=== PATIENT | female | born 1960 | race Caucasian/White ===

== ENCOUNTER → 2016-09-08 | Outpatient (CLI) | payer OTHER ==
[~2016-09-08] MED LIST: ALENDRONATE SOD70 M1 PO; ALLEGRA30 MG; ASA; ASPIRIN ADULT L81 M1; BUSPIRONE HCL10 MG PO; CARVEDILOL3.125 MG; CARVEDILOL3.125 MG PO; COREG6.25 MG; CRESTOR10 MG PO; CYCLOBENZAPR; DAYPRO600 M1 PO; ESCITALOPRAM OX10 MG PO; ETODOLAC400 M2 PO; ETODOLAC400 MG PO; FLEXERIL10 MG PO; HYDROCODONE BIT1 T11 PO; LODINE XL400 MG; MICARDIS40 MG; MICARDIS40 MG PO; OMEPRAZOLE; OMEPRAZOLE20 MG; OYSTER SHELL C500 M2 PO; PREVACID; SIMVASTATIN40 MG; TELMISARTAN40 M1 PO; ULTRAM50 MG PO; VICODIN ES 7501 TAB PO; VITAMIN D; VITAMIN D5000 I2 PO; ZANTAC150 MG PO; [UNRECOGNIZED DRUG - MIXTURE]
== END | disposition home or self-care (01) ==
LOC: RAD 14:41
DX: M47.896 Other spondylosis, lumbar region (principal); M54.41 Lumbago with sciatica, right side; M53.3 Sacrococcygeal disorders, not elsewhere classified; M47.892 Other spondylosis, cervical region

== ENCOUNTER 2016-09-14 17:10 | Emergency (ER) | payer SELFPAY ==
[~2016-09-14] VITALS: Ht 160 cm; Wt 71.7 kg
[2016-09-14 17:16] VITALS: BP 126/94
[2016-09-14] MEDS ORDERED: NAPROSYN500 MG PO (17:28)
== END 2016-09-14 17:35 | disposition home or self-care (01) ==
LOC: ED 17:10
DX: G89.29 Other chronic pain (principal); M54.2 Cervicalgia; M54.5 Low back pain; M25.551 Pain in right hip; M19.90 Unspecified osteoarthritis, unspecified site; F17.200 Nicotine dependence, unspecified, uncomplicated; Z88.6 Allergy status to analgesic agent; Z88.8 Allergy status to other drugs, medicaments and biological substances; Z79.899 Other long term (current) drug therapy

== ENCOUNTER → 2017-08-20 | Outpatient (CLI) | payer OTHER ==
[~2017-08-20] MED LIST changes: +NAPROSYN500 MG PO
== END | disposition home or self-care (01) ==
LOC: US 09:24
DX: M85.5 Aneurysmal bone cyst (principal); K66.8 Other specified disorders of peritoneum

== ENCOUNTER 2018-01-26 12:21 | Emergency (ER) | payer BC ==
[~2018-01-26] VITALS: Ht 160 cm; Wt 70.8 kg
[2018-01-26 12:23] VITALS: BP 148/81
[2018-01-26] MEDS ORDERED: NAPROSYN500 MG PO (12:38)
== END 2018-01-26 15:11 | disposition home or self-care (01) ==
LOC: ED 12:21
DX: S93.602A Unspecified sprain of left foot, initial encounter (principal); R03.0 Elevated blood-pressure reading, without diagnosis of hypertension; G89.29 Other chronic pain; Z88.6 Allergy status to analgesic agent; Z88.8 Allergy status to other drugs, medicaments and biological substances; Z79.1 Long term (current) use of non-steroidal anti-inflammatories (NSAID); Z79.899 Other long term (current) drug therapy; Z90.710 Acquired absence of both cervix and uterus; W22.8XXA Striking against or struck by other objects, initial encounter; Y93.89 Activity, other specified; Y92.89 Other specified places as the place of occurrence of the external cause; Y99.8 Other external cause status

== ENCOUNTER → 2018-04-24 | Outpatient (CLI) | payer BC | END | disposition home or self-care (01) | LOC: RAD 14:49 | DX: M47.817 Spondylosis without myelopathy or radiculopathy, lumbosacral region (principal); M48.061 Spinal stenosis, lumbar region without neurogenic claudication; M48.02 Spinal stenosis, cervical region ==

== ENCOUNTER 2018-09-05 01:34 | Emergency (ER) | payer BC ==
[~2018-09-05] VITALS: Ht 160 cm; Wt 66.7 kg
--- NOTE | ~2018-09-05 | EKG ---
[place], [place] ELECTROCARDIOGRAM REPORT NAME: GOPAL WOOD UNIT #: [id number] ROOM: DOCTOR: EPIPHANY DRAFT REPORT BIRTHDATE: [birth year] [facility] Test Date: 2018-09-05 Test Time: 01:48:43 Pat Name: GOPAL WOOD Department: Room: Gender: F Practice Assistant: : 1960 Requested By: CHICO VERONICA Order Number: [id number] Reading MD: Alfredo Zhao MD Measurements Intervals [place] Rate: 54 P: 45 RI: 159 QRS: 42 QRSD: 137 T: -39 QT: 497 QTc: 472 Interpretive Statements Sinus rhythm Left bundle branch block Baseline wander in lead(s) V3 No previous ECG available for comparison Electronically Signed On 09-05-2018 8:23:23 PDT by Alfredo Zhao MD CM:EKGRPT:ELECTROCARDIOGRAM REPORT [id number] CHICO ATKINS DRAFT REPORT CHICO VERONICA DO
[2018-09-05 01:35] VITALS: BP 138/59
[2018-09-05 02:02] LABS: BASO # 0.1 10*3/uL (0.0-0.1); BASO % 1.3 % (0.0-1.0); EOS # 0.2 10*3/uL (0.0-0.4); EOS % 2.9 % (1.0-4.0); HEMATOCRIT 37.5 % (37.0-47.0); HEMOGLOBIN 12.8 g/dl (12.0-16.0); LYMPH # 2.7 10*3/uL (1.3-4.4); LYMPH % 35.1 % (27.0-41.0); MEAN CELL VOLUME 93.1 fl (81.0-99.0); MEAN CORPUSCULAR HGB 31.8 pg (27.0-31.0); MEAN CORPUSCULAR HGB CONC 34.1 g/dl (33.0-37.0); MEAN PLATELET VOLUME 10.3 fl (9.6-12.3); MONO # 0.6 10*3/uL (0.1-1.0); MONO % 7.4 % (3.0-9.0); NEUT # 4.1 10*3/uL (2.3-7.9); PLATELET COUNT AUTOMATED 285 10*3/uL (130-400); RED BLOOD COUNT 4.03 10*6/uL (4.10-5.10); RED CELL DISTRI WIDTH 11.7 % (0-14.5); WHITE BLOOD COUNT 7.7 10*3/uL (4.8-10.8)
[2018-09-05 02:14] LABS: ACT PARTIAL THROMBO TIME 27.9 SECONDS (20.0-32.1); INTERNATIONAL NORM RATIO 0.9 (2.0-3.5)
[2018-09-05 02:19] LABS: ALBUMIN 3.8 gm/dl (3.1-4.5); ALKALINE PHOSPHATASE 103 U/L (45-117); BUN 25 mg/dl (7-24); CHLORIDE 110 mmol/L (98-107); LIPASE 161 U/L (73-393); POTASSIUM 3.7 mmol/L (3.5-5.1); SGOT/AST 17 IU/L (3-35); SGPT/ALT 23 U/L (12-78); SODIUM 142 mmol/L (136-145)
[2018-09-05 02:20] LABS: TROPONIN I < 0.015 ng/ml (<0.045)
== END 2018-09-05 04:06 | disposition home or self-care (01) ==
LOC: ED 01:34
PROVIDERS: Student in an Organized Health Care Education/Training Program
DX: R10.13 Epigastric pain (principal); I25.2 Old myocardial infarction; M06.9 Rheumatoid arthritis, unspecified; M79.7 Fibromyalgia; F17.200 Nicotine dependence, unspecified, uncomplicated; Z90.710 Acquired absence of both cervix and uterus; Z88.6 Allergy status to analgesic agent; Z88.8 Allergy status to other drugs, medicaments and biological substances; Z79.899 Other long term (current) drug therapy

== ENCOUNTER 2019-03-15 00:03 | Emergency (ER) | payer BC ==
[~2019-03-15] VITALS: Ht 160 cm; Wt 67.1 kg
[2019-03-15 00:21] VITALS: BP 118/56
[2019-03-15 01:02] LABS: BASO # 0.1 10*3/uL (0.0-0.1); BASO % 0.8 % (0.0-1.0); EOS # 0.2 10*3/uL (0.0-0.4); EOS % 2.7 % (1.0-4.0); HEMOGLOBIN 13.3 g/dl (12.0-16.0); LYMPH # 2.9 10*3/uL (1.3-4.4); LYMPH % 33.2 % (27.0-41.0); MEAN CELL VOLUME 92.4 fl (81.0-99.0); MEAN CORPUSCULAR HGB 31.5 pg (27.0-31.0); MEAN CORPUSCULAR HGB CONC 34.1 g/dl (33.0-37.0); MEAN PLATELET VOLUME 9.9 fl (9.6-12.3); MONO # 0.6 10*3/uL (0.1-1.0); NEUT # 4.8 10*3/uL (2.3-7.9); NEUT % 56.1 % (47.0-73.0); PLATELET COUNT AUTOMATED 312 10*3/uL (130-400); RED BLOOD COUNT 4.22 10*6/uL (4.10-5.10); WHITE BLOOD COUNT 8.6 10*3/uL (4.8-10.8)
[2019-03-15 01:20] LABS: ALBUMIN 3.9 gm/dl (3.1-4.5); ALKALINE PHOSPHATASE 99 U/L (45-117); BUN 20 mg/dl (7-24); CHLORIDE 105 mmol/L (98-107); LIPASE 162 U/L (73-393); POTASSIUM 3.7 mmol/L (3.5-5.1); SGOT/AST 19 IU/L (3-35); SGPT/ALT 25 U/L (12-78); SODIUM 139 mmol/L (136-145); TOTAL PROTEIN 6.9 gm/dL (6.4-8.2)
[2019-03-15 01:31] LABS: BILIRUBIN NEGATIVE (NEGATIVE); BLOOD NEGATIVE (NEGATIVE); CLARITY CLEAR (CLEAR); COLOR YELLOW (YELLOW); GLUCOSE NEGATIVE (NEGATIVE); KETONE NEGATIVE (NEGATIVE); LEUKO ESTERASE NEGATIVE (NEGATIVE); NITRITE NEGATIVE (NEGATIVE); PH 5.5 (5.0-9.0); UROBILINOGEN 0.2 E.U./dl (0.2-1.0)
[2019-03-15 01:38] LABS: URINE AMPHETAMINES < 1000 (1000ng/ml); URINE BARBITURATES < 200 (200ng/ml); URINE BENZODIAZEPINES < 200 (200ng/ml); URINE CANNABINOIDS (THC) > 50 (50ng/ml); URINE COCAINE < 300 (300ng/ml); URINE METHADONE < 300 (300ng/ml); URINE OPIATES > 300 (300ng/ml)
[2019-03-15 01:47] LABS: BACTERIA TRACE; RBC 0-2 rbc/hpf (0-2)
[2019-03-15 01:48] LABS: TROPONIN I < 0.015 ng/ml (<0.045)
[2019-03-15 01:48] LABS: URINE PHENCYCLIDINE < 25 (25ng/ml)
[2019-03-15] MEDS ORDERED: PREDNISONE20 M1 PO (05:31)
[2019-03-15] MEDS ORDERED: CYCLOBENZAPRINE5 M3 PO (05:31)
[2019-03-15] MEDS ORDERED: LIDODERM1 EACH T (05:52)
== END 2019-03-15 05:45 | disposition home or self-care (01) ==
LOC: ED 00:03
PROVIDERS: Emergency Medicine Emergency Medical Services
DX: R07.89 Other chest pain (principal); R10.31 Right lower quadrant pain; I25.2 Old myocardial infarction; M79.7 Fibromyalgia; I10 Essential (primary) hypertension; Z88.6 Allergy status to analgesic agent; Z88.8 Allergy status to other drugs, medicaments and biological substances; Z79.899 Other long term (current) drug therapy; Z90.710 Acquired absence of both cervix and uterus; Z98.61 Coronary angioplasty status

== ENCOUNTER 2021-01-03 11:39 | Inpatient (IN) | payer BC ==
[~2021-01-03] VITALS: Ht 160 cm; Wt 61.2 kg
[~2021-01-03 11:39] MED LIST changes: +CYCLOBENZAPRINE5 M3 PO; +LIDODERM1 EACH T; +PREDNISONE20 M1 PO
[2021-01-03 11:48] VITALS: BP 146/82
[2021-01-03 12:09] LABS: BASO # 0.1 10*3/uL (0.0-0.1); BASO % 0.7 % (0.0-1.0); EOS # 0.1 10*3/uL (0.0-0.4); EOS % 1.3 % (1.0-4.0); HEMATOCRIT 41.9 % (37.0-47.0); LYMPH # 1.8 10*3/uL (1.3-4.4); LYMPH % 21.1 % (27.0-41.0); MEAN CORPUSCULAR HGB 31.7 pg (27.0-31.0); MEAN CORPUSCULAR HGB CONC 33.4 g/dl (33.0-37.0); MEAN PLATELET VOLUME 9.6 fl (9.6-12.3); MONO # 0.5 10*3/uL (0.1-1.0); MONO % 5.6 % (3.0-9.0); NEUT % 71.1 % (47.0-73.0); PLATELET COUNT AUTOMATED 371 10*3/uL (130-400); RED BLOOD COUNT 4.41 10*6/uL (4.10-5.10); RED CELL DISTRI WIDTH 11.9 % (0-14.5); WHITE BLOOD COUNT 8.4 10*3/uL (4.8-10.8)
[2021-01-03 12:21] LABS: ACT PARTIAL THROMBO TIME 28.6 SECONDS (20.0-32.1)
[2021-01-03 12:25] LABS: ALKALINE PHOSPHATASE 91 U/L (45-117); BUN 15 mg/dl (7-24); CHLORIDE 107 mmol/L (98-107); CREATININE 0.79 mg/dL (0.55-1.02); POTASSIUM 4.6 mmol/L (3.5-5.1); SGOT/AST 15 IU/L (3-35); SGPT/ALT 23 U/L (12-78); SODIUM 142 mmol/L (136-145); TOTAL PROTEIN 7.4 gm/dL (6.4-8.2)
[2021-01-03 12:33] LABS: TROPONIN I < 0.015 ng/ml (<0.045)
[2021-01-03 12:47] VITALS: BP 122/72
[2021-01-03 15:36] VITALS: BP 116/61
[2021-01-03] MEDS ORDERED: VITAMIN C250 M2 PO (17:26)
[2021-01-03] MEDS ORDERED: VITAMIN D325 MCG PO (17:26)
[2021-01-03] MEDS ORDERED: ZOFRAN4 MG PO (17:28)
[2021-01-03] MEDS ORDERED: ZANAFLEX2 M1 PO (17:31)
[2021-01-03] MEDS ORDERED: PRAVASTATIN SOD40 MG PO (17:31)
[2021-01-03] MEDS ORDERED: VITAMIN E1000 UNI1 PO (17:32)
[2021-01-03] MEDS ORDERED: NORVASC5 MG PO (17:33)
[2021-01-03] MEDS ORDERED: PROTONIX TR40 M1 PO (17:35)
[2021-01-03] MEDS ORDERED: TOPCARE ARTHRI650 MG PO (17:36)
[2021-01-03] MEDS ORDERED: LEXAPRO10 MG PO (17:46)
[2021-01-03 19:22] VITALS: BP 94/60
[2021-01-04 05:34] LABS: ALBUMIN 3.6 gm/dl (3.1-4.5); BUN 16 mg/dl (7-24); CHLORIDE 108 mmol/L (98-107); CHOLESTEROL 156 mg/dL (<200); POTASSIUM 4.4 mmol/L (3.5-5.1); SGOT/AST 13 IU/L (3-35); SGPT/ALT 20 U/L (12-78); SODIUM 141 mmol/L (136-145)
[2021-01-04 05:42] LABS: ALKALINE PHOSPHATASE 80 U/L (45-117); FREE T4 0.99 ng/dl (0.76-1.46); LDL CHOLESTEROL 86 mg/dL (9-159); TOTAL PROTEIN 6.8 gm/dL (6.4-8.2); TRIGLYCERIDES 136 mg/dl (<150)
[2021-01-04 06:14] LABS: BASO # 0.1 10*3/uL (0.0-0.1); EOS # 0.2 10*3/uL (0.0-0.4); EOS % 3.4 % (1.0-4.0); HEMATOCRIT 40.7 % (37.0-47.0); LYMPH # 2.2 10*3/uL (1.3-4.4); LYMPH % 35.6 % (27.0-41.0); MEAN CELL VOLUME 95.8 fl (81.0-99.0); MEAN CORPUSCULAR HGB 31.3 pg (27.0-31.0); MEAN CORPUSCULAR HGB CONC 32.7 g/dl (33.0-37.0); MEAN PLATELET VOLUME 9.9 fl (9.6-12.3); MONO # 0.5 10*3/uL (0.1-1.0); MONO % 7.5 % (3.0-9.0); NEUT # 3.2 10*3/uL (2.3-7.9); NEUT % 52.3 % (47.0-73.0); PLATELET COUNT AUTOMATED 348 10*3/uL (130-400); RED BLOOD COUNT 4.25 10*6/uL (4.10-5.10); WHITE BLOOD COUNT 6.1 10*3/uL (4.8-10.8)
[2021-01-04 06:51] LABS: VITAMIN D, 25-HYDROXY 47.4 ng/mL (30-100)
[2021-01-04 09:36] VITALS: BP 137/60
[2021-01-04] MEDS ORDERED: IMDUR SA30 MG PO (11:34)
== END 2021-01-04 12:01 | disposition home or self-care (01) | DRG 303 ==
LOC: ED 11:39 → EDHOLD 14:10
PROVIDERS: Emergency Medicine; Family Medicine; ADMIT Student in an Organized Health Care Education/Training Program; ATTEND Student in an Organized Health Care Education/Training Program
PROC: 4A02XM4 Measurement of Cardiac Total Activity, External Approach (ICD-10-PCS; principal; 2021-01-04)
PROC: 3E073KZ Introduction of Other Diagnostic Substance into Coronary Artery, Percutaneous Approach (ICD-10-PCS; 2021-01-04)
DX: I25.10 Atherosclerotic heart disease of native coronary artery without angina pectoris (principal); I10 Essential (primary) hypertension; F12.10 Cannabis abuse, uncomplicated; M19.90 Unspecified osteoarthritis, unspecified site; I25.2 Old myocardial infarction; R00.1 Bradycardia, unspecified; R73.9 Hyperglycemia, unspecified; E83.41 Hypermagnesemia; Z71.6 Tobacco abuse counseling; F17.210 Nicotine dependence, cigarettes, uncomplicated; G89.29 Other chronic pain; Z98.891 History of uterine scar from previous surgery; Z90.710 Acquired absence of both cervix and uterus; Z82.49 Family history of ischemic heart disease and other diseases of the circulatory system; Z79.82 Long term (current) use of aspirin; Z79.899 Other long term (current) drug therapy; Z88.6 Allergy status to analgesic agent; Z88.8 Allergy status to other drugs, medicaments and biological substances